=== PATIENT | male | born 1995 | race Caucasian/White ===

== ENCOUNTER → 2017-01-17 | Outpatient (CLI) | payer BC ==
--- NOTE | 2017-01-17 17:25 | XR ---
EXAMINATION TYPE: XR ankle complete RT DATE OF EXAM: 01/17/2017 COMPARISON: NONE HISTORY: Pain TECHNIQUE: 3 views FINDINGS: Ankle mortise is anatomic. I see no fracture nor dislocation. There is a plantar calcaneal spur. There is soft tissue swelling around the ankle joint. IMPRESSION: Soft tissue swelling. No fracture.
== END | disposition home or self-care (01) ==
LOC: RADXRYALE 16:54
PROVIDERS: ATTEND Physician Assistant Medical
DX: M79.89 Other specified soft tissue disorders (principal); M25.571 Pain in right ankle and joints of right foot

== ENCOUNTER → 2018-05-19 | Outpatient (CLI) | payer OTHER ==
--- NOTE | 2018-05-19 11:25 | MR ---
EXAMINATION TYPE: MR sacroiliac joints wo con DATE OF EXAM: 05/19/2018 COMPARISON: None HISTORY: Pain Standard multiplanar, multisequence MRI departmental protocol Multiplanar, multisequence images of the SI joints were acquired. FINDINGS: Joint spaces preserved. There does appear to be abnormal signal involving the right ilium inferiorly in the right which could represent a small bone island. There is a degree of fatty marrow replacement surrounding the SI joint bilaterally which can be seen with chronic sacroiliitis. STIR images demonstrate some increased signal within the sacrum greater on the left be associated wit h sacroiliitis. There appears to be degenerative disc disease and a central disc herniation L4-L5. Heterogeneous marrow signal is are seen predominantly within the sacrum some of which may been the ba sis of marrow reconversion. IMPRESSION: 1. 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 2. Heterogeneous marrow signal most likely on the basis of marrow reconversion. Findings seen adjacen t to the SI joints can be associated with sacroiliitis, correlate clinically. Findings are bilateral but asymmetric and greater on the left.
== END | disposition home or self-care (01) ==
LOC: RADMRIMAIN 10:24
PROVIDERS: ATTEND Internal Medicine Rheumatology
DX: M51.26 Other intervertebral disc displacement, lumbar region (principal)
CPT/HCPCS: 72195